=== PATIENT | male | born 1985 | race Caucasian/White ===

== ENCOUNTER 2022-07-29 07:04 | Day surgery (SDC) | payer OTHER ==
[2022-07-28 09:33] VITALS: BMI 25.8
[2022-07-29] MEDS ORDERED: Lidocaine 1% PF 5 ML VIAL ONE (11:27)
[2022-07-29] MEDS ORDERED: Fentanyl 100 MCG/2 ML VIAL ONE (11:27)
[2022-07-29] MEDS ORDERED: PROPOFOL 40 ML ONE (11:27)
[2022-07-29] MEDS ORDERED: PROPOFOL 20 ML ONE (12:41)
== END 2022-07-29 13:20 | disposition home or self-care (01) ==
LOC: CSHULT 07:04
PROVIDERS: ATTEND Internal Medicine Gastroenterology
DX: K29.50 Unspecified chronic gastritis without bleeding (principal); B96.81 Helicobacter pylori [H. pylori] as the cause of diseases classified elsewhere; R13.10 Dysphagia, unspecified; K26.9 Duodenal ulcer, unspecified as acute or chronic, without hemorrhage or perforation; F17.200 Nicotine dependence, unspecified, uncomplicated
CPT/HCPCS: 76700; 88305; 88342; J2704; J3010